=== PATIENT | male | born 1965 | race Caucasian/White ===

== ENCOUNTER → 2017-11-08 | Outpatient (CLI) | payer OTHER | END | disposition home or self-care (01) | LOC: PCVCIMAG 13:05 | DX: I50.20 Unspecified systolic (congestive) heart failure (principal); R06.00 Dyspnea, unspecified; I42.9 Cardiomyopathy, unspecified | CPT/HCPCS: 93308 ==

== ENCOUNTER → 2017-12-13 | Outpatient (CLI) | payer OTHER | END | disposition home or self-care (01) | LOC: PCVCIMAG 11:03 | DX: I11.0 Hypertensive heart disease with heart failure (principal); I50.20 Unspecified systolic (congestive) heart failure; I42.9 Cardiomyopathy, unspecified; F17.210 Nicotine dependence, cigarettes, uncomplicated; Z88.0 Allergy status to penicillin; Z88.8 Allergy status to other drugs, medicaments and biological substances; Z79.899 Other long term (current) drug therapy; Z79.4 Long term (current) use of insulin; Z79.84 Long term (current) use of oral hypoglycemic drugs | CPT/HCPCS: 93308; G0463 ==

== ENCOUNTER → 2018-12-30 | Outpatient (CLI) | payer OTHER ==
--- NOTE | 2018-12-30 14:37 | PCVCIMAG ---
APPROVED REPORT Study performed: 12/30/2018 11:52:57 EXAM: Comprehensive 2D, Doppler, and color-flow Echocardiogram Patient Location: Echo lab Status: routine BSA: 1.97 HR: 76 bpmBP: 108/64 mmHg Rhythm: NSR Other Information Study Quality: Adequate Risk Factors: Cardiac Risk Factors: HTN Indications Congestive Heart Failure Cardiomyopathy 2D Dimensions IVSd: 13.08 (7-11mm) LVDd: 41.96 mm PWd: 11.98 (7-11mm)Ascending Ao: 28.97 (22-36mm) LVDs: 34.85 (25-40mm) Left Atrium: 38.54 (27-40mm) Aortic Root: 29.67 mm LV Single Plane 4CH: 41.77 % LV Single Plane 2CH: 38.70 % Biplane EF: 40.5 % Volumes Left Atrial Volume (Systole) Single Plane 4CH: 27.57 mLSingle Plane 2CH: 54.89 mL LA ESV Index: 20.00 mL/m2 Aortic Valve AoV Peak Immanuel.: 1.23 m/s AO Peak Gr.: 6.01 mmHgLVOT Max P.82 mmHg LVOT Max V: 0.84 m/s Mitral Valve E/A Ratio: 0.5 MV Decel. Time: 267.49 ms MV E Max Immanuel.: 0.48 m/s MV A Immanuel.: 0.94 m/s IVRT: 159.17 ms Pulmonary Valve PV Peak Immanuel.: 0.90 m/sPV Peak Gr.: 3.22 mmHg Pulmonary Vein P Vein S: 0.27 m/sP Vein A: 0.65 m/s P Vein D: 0.41 m/sP Vein A Dur.: 145.3 msec P Vein S/D Ratio: 0.66 Tricuspid Valve TR Peak Immanuel.: 2.19 m/s TR Peak Gr.: 19.13 mmHg Left Ventricle The left ventricle is normal size. There is normal LV segmental wall motion. Mild concentric left ventricular hypertrophy. Left ventricular systolic function is mildly decreased. LVEF is 45%. Grade I - abnormal relaxation pattern. Right Ventricle The right ventricle is normal size. The right ventricular systolic function is normal. Atria The left atrium size is normal. The right atrium size is normal. Aortic Valve The aortic valve is normal in structure. No aortic regurgitation is present. There is no aortic valvular stenosis. Mitral Valve The mitral valve is normal in structure. There is no mitral valve regurgitation noted. No evidence of mitral valve stenosis. Tricuspid Valve The tricuspid valve is normal in structure. Trace tricuspid regurgitation with PAP of 26 mmHg. Pulmonic Valve The pulmonary valve is normal in structure. There is no pulmonic valvular regurgitation. Great Vessels The aortic root is normal in size. IVC is normal in size and collapses >50% with inspiration. Pericardium There is no pericardial effusion. There is no pleural effusion. <Conclusion> The left ventricle is normal size. LVEF is 45%. The aortic valve is normal in structure. The mitral valve is normal in structure. The tricuspid valve is normal in structure. Trace tricuspid regurgitation with PAP of 26 mmHg. The aortic root is normal in size. There is no pericardial effusion. There is no pleural effusion.
== END | disposition home or self-care (01) ==
LOC: PCVCIMAG 12:47
PROVIDERS: ATTEND Internal Medicine
DX: I50.9 Heart failure, unspecified (principal); I15.9 Secondary hypertension, unspecified; R06.00 Dyspnea, unspecified; R60.9 Edema, unspecified
CPT/HCPCS: 93306